=== PATIENT | female | born 1980 | race Hispanic/Latino ===

== ENCOUNTER 2024-01-27 13:41 | Inpatient (IN) | payer SELFPAY ==
[2024-01-27 14:22] LABS: #Basophils Less than 0.03 10x3/uL (0.0-0.2); %Basophils 0.2 % (0.0-1.0); %Eosinophils 2.1 % (0.0-10.0); %Lymphocytes 17.6 % (21.0-51.0); %Monocytes 4.2 % (0.0-10.0); %Neutrophils 75.3 % (42.0-75.0); Hematocrit 40.7 % (36.0-47.0); Hemoglobin 13.9 g/dL (12.0-16.0); Mean Corpuscular HGB CONC 34.2 g/dL (32.0-36.0); Mean Corpuscular Hemoglobin 28.7 pg (27.0-31.0); Mean Corpuscular Volume 83.9 fL (78.0-98.0); Mean Platelet Volume 9.6 fL (7.4-10.4); Platelet Count 331 10x3/uL (130-400); RBC Distribution Width 13.3 % (11.5-14.5); Red Blood Cell (RBC) Count 4.85 mill/uL (4.20-5.40)
[2024-01-27 15:06] LABS: ALT (SGPT) 77 U/L (8-55); AST (SGOT) 24 U/L (5-34); Albumin 3.6 g/dL (3.5-5.0); Alkaline Phosphatase 102 U/L (40-110); Anion Gap 15 mmol/L (10-20); BUN (Urea Nitrogen) 13 mg/dL (7.0-18.7); Bilirubin, Total 0.2 mg/dL (0.2-1.2); Calc. Creatinine Clearance 0 mL/min (70-130); Calcium 8.9 mg/dL (7.8-10.44); Carbon Dioxide 21 mmol/L (22-29); Chloride 107 mmol/L (98-107); Estimated GFR 91; Globulin 3.6 g/dL (2.4-3.5); Glucose 117 mg/dL (70-105); Potassium 3.8 mmol/L (3.5-5.1); Protein, Total 7.2 g/dL (6.0-8.3); Sodium 139 mmol/L (136-145)
[2024-01-27] MEDS ORDERED: Ondansetron ODT 4 MG TAB ONE (15:29)
[2024-01-27 16:00] LABS: BHCG - Serum Negative (NEGATIVE); Pregs Control Background? CLEAR/WHITE (CLR/WHITE); Pregs Control Bar Appear? YES (CONTROL BAR)
[2024-01-27 16:13] LABS: Troponin I 0.194 ng/mL (< 0.028)
[2024-01-27 16:20] LABS: Bacteria/HPF None Seen HPF (None Seen); Bilirubin Negative (Negative); Blood, Urine Negative (Negative); CAUTI Indications for Culture Dysuria,urgency,freq; Clarity Clear (Clear); Glucose, Urine (Dipstick) Normal (Negative); Ketone, Urine Negative (Negative); Leukocyte Negative Leu/uL (Negative); Nitrite Negative (Negative); Protein, Urine (Dipstick) Negative (Neg-Trace); RBC/HPF 0-3 HPF (0-3); Specific Gravity, Urine 1.017 (1.002-1.036); Squamous Epithelial 0-3 HPF (0-3); Urobilinogen Normal mg/dL (Less than 2); WBC/HPF 0-3 HPF (0-3); pH, Urine 6.5 (5.0-9.0)
[2024-01-27 16:21] LABS: Pregnancy Test - Urine (BHCG) Negative (Negative); Pregu Control Background? CLEAR/WHITE (CLR/WHITE); Pregu Control Bar Appear? YES (CONTROL BAR); Specific Gravity 1.017 (1.002-1.036)
[2024-01-27 16:22] LABS: Urine Culture Reflex No No
[2024-01-27] MEDS ORDERED: Nitroglycerin 2% Ointment 1 INCH/1 GM Packet ONE (16:51)
[2024-01-27] MEDS ORDERED: Aspirin Chewable 81 MG TAB ONE (16:51)
[2024-01-27] MEDS ORDERED: Enoxaparin 30 MG (0.3 mL) SYRINGE ONE (17:02)
[2024-01-27] MEDS ORDERED: Acetaminophen 650 MG Suppository PR PRN (17:04)
[2024-01-27] MEDS ORDERED: Ondansetron ODT 4 MG TAB PO PRN (17:04)
[2024-01-27] MEDS ORDERED: Ondansetron PF 4 MG/2 ML Vial IVP PRN (17:04)
[2024-01-27 17:28] LABS: Acetaminophen Less than 10 mcg/mL (10.0-30.0); Alcohol Less than 10.0 mg/dL (Less than 10); Salicylate Less than 8.0 mg/dL (15.0-30.0)
[2024-01-27 17:37] LABS: Amphetamine Not Detected (NotDetected); Barbiturates Screen Not Detected (NotDetected); Benzodiazepine Screen Not Detected (NotDetected); Cocaine Metabolite Screen Not Detected (NotDetected); Methadone Not Detected (NotDetected); Methamphetamine Not Detected (NotDetected); Opiate Screen Not Detected (NotDetected); Oxycodone Screen Not Detected (NotDetected); Phencyclidine (PCP) Not Detected (NotDetected); THC/Cannabinoid Screen Not Detected (NotDetected); Tricyclic Screen Not Detected (NotDetected)
[2024-01-27 17:58] VITALS: BMI 34.2
[2024-01-27] MEDS: Losartan 25 MG TAB PO SCH (18:15)
[2024-01-27] MEDS: Atorvastatin Calcium 40 MG TAB PO SCH (20:39)
[2024-01-27] MEDS: Famotidine 20 MG TAB PO SCH (20:42)
[2024-01-27] MEDS: Enoxaparin 60 MG (0.6 mL) SYRINGE SC SCH (20:42)
[2024-01-27] MEDS ORDERED: Enoxaparin 80 MG (0.8 mL) SYRINGE SC SCH (21:00)
[2024-01-27 22:35] LABS: Critical Call Chem Troponin I RESULT DECREASING; Troponin I 0.255 ng/mL (< 0.028)
[2024-01-28] MEDS: Acetaminophen 325 MG TAB PO PRN (03:59)
[2024-01-28 04:36] LABS: #Basophils 0.03 10x3/uL (0.0-0.2); %Basophils 0.3 % (0.0-1.0); %Eosinophils 2.2 % (0.0-10.0); %Lymphocytes 22.7 % (21.0-51.0); %Monocytes 5.1 % (0.0-10.0); %Neutrophils 69.3 % (42.0-75.0); Hematocrit 38.6 % (36.0-47.0); Hemoglobin 13.1 g/dL (12.0-16.0); Mean Corpuscular HGB CONC 33.9 g/dL (32.0-36.0); Mean Corpuscular Volume 85.6 fL (78.0-98.0); Mean Platelet Volume 9.5 fL (7.4-10.4); Platelet Count 333 10x3/uL (130-400); RBC Distribution Width 13.4 % (11.5-14.5); Red Blood Cell (RBC) Count 4.51 mill/uL (4.20-5.40)
[2024-01-28 04:47] LABS: Hemoglobin A1c 5.6 % (4.0-6.0)
[2024-01-28 05:02] LABS: Anion Gap 13 mmol/L (10-20); BUN (Urea Nitrogen) 10 mg/dL (7.0-18.7); Calc. Creatinine Clearance 145 mL/min (70-130); Calcium 8.7 mg/dL (7.8-10.44); Carbon Dioxide 23 mmol/L (22-29); Cardiac Risk 5.1 (Less than 4.5); Chloride 108 mmol/L (98-107); Cholesterol 179 mg/dl (< 200 Desired); Estimated GFR 109; Glucose 112 mg/dL (70-105); HDL Cholesterol 35 mg/dL (>60 Neg Risk); LDL Cholesterol, Calculated 118 mg/dL; Magnesium 2.1 mg/dL (1.6-2.6); Phosphorus 3.1 mg/dL (2.3-4.7); Potassium 3.7 mmol/L (3.5-5.1); Sodium 140 mmol/L (136-145); Triglycerides 131 mg/dL (Less than 150)
[2024-01-28] MEDS: Levothyroxine Sodium 100 MCG TAB PO SCH (05:48)
[2024-01-28] MEDS: Enoxaparin 100 MG (1 mL) SYRINGE SC SCH (08:37)
[2024-01-28] MEDS: Aspirin 81 mg Enteric Coated Tablet PO SCH (08:37)
[2024-01-28] MEDS: Losartan 25 MG TAB PO SCH (08:37)
[2024-01-28] MEDS ORDERED: Communication Order-Pharmacy FS SCH (11:15)
[2024-01-28 14:38] LABS: Pregnancy Test - Urine (BHCG) Negative (Negative); Pregu Control Background? CLEAR/WHITE (CLR/WHITE); Pregu Control Bar Appear? YES (CONTROL BAR); Specific Gravity 1.007 (1.002-1.036)
[2024-01-28] MEDS: Enoxaparin 40 MG (0.4 mL) SYRINGE SC SCH (20:28)
[2024-01-28] MEDS ORDERED: Enoxaparin 100 MG (1 mL) SYRINGE SC SCH (21:00)
[2024-01-29] MEDS: Sodium Chloride 0.9% 1,000 ML IV SCH (05:38)
[2024-01-29] MEDS ORDERED: Adenosine 6 mg (2 mL) VIAL ONE (07:04)
[2024-01-29] MEDS ORDERED: Heparin 10,000 UNITS/ 10 ML VIAL ONE (07:05)
[2024-01-29] MEDS ORDERED: Nitroglycerin 50 MG/250 ML BOT 250 ML ONE (07:05)
[2024-01-29] MEDS ORDERED: fentaNYL 50 mcg/mL 1 mL Vial ONE (08:12)
[2024-01-29] MEDS ORDERED: Midazolam HCl 2 mg/2 ml Vial ONE (08:12)
[2024-01-29] MEDS ORDERED: Nitroglycerin 0.4 MG TAB (25 Tab Bottle) SL PRN (09:05)
[2024-01-29] MEDS ORDERED: Sodium Chloride 0.9% 200 ML IV PRN (09:05)
[2024-01-29] MEDS ORDERED: Iopamidol 370 76% 100 ML VIAL ONE (14:31)
[2024-01-29 15:47] VITALS: BP 128/73; TEMP 97.8
[2024-01-29] MEDS ORDERED: Rosuvastatin 20 MG TAB PO SCH (21:00)
[2024-01-30] MEDS ORDERED: dilTIAZem CD 120 MG CAP PO SCH (09:00)
== END 2024-01-29 16:08 | disposition home or self-care (01) | DRG 281 ==
LOC: SUATTDRO 13:41 → ERS 13:41 → 2NO 16:36
PROVIDERS: ADMIT Family Medicine; ATTEND Internal Medicine
PROC: 4A023N7 Measurement of Cardiac Sampling and Pressure, Left Heart, Percutaneous Approach (ICD-10-PCS; principal; 2024-01-29)
PROC: B2111ZZ Fluoroscopy of Multiple Coronary Arteries using Low Osmolar Contrast (ICD-10-PCS; 2024-01-29)
PROC: B2151ZZ Fluoroscopy of Left Heart using Low Osmolar Contrast (ICD-10-PCS; 2024-01-29)
DX: I21.4 Non-ST elevation (NSTEMI) myocardial infarction (principal); I47.10 Supraventricular tachycardia, unspecified; I10 Essential (primary) hypertension; E03.9 Hypothyroidism, unspecified; R73.03 Prediabetes; E78.2 Mixed hyperlipidemia; Z97.5 Presence of (intrauterine) contraceptive device; Z79.890 Hormone replacement therapy
CPT/HCPCS: 36415; 71045; 80048; 80053; 80061; 80306; 80307; 81001; 81025; 82550; 83036; 83690; 83735; 84100; 84443; 84484; 84703; 85025; 85379; 93005; 93458; 96372; 97139; 99152; 99153; C1769; C1887; C1894; J0153; J1644; J1650; J2250; J3010; J7050; Q0162; Q9967